=== PATIENT | female | born 1960 | race Caucasian/White ===

== ENCOUNTER → 2016-10-15 | Outpatient (CLI) | payer BC ==
[~2016-10-15] MED LIST: ASPERCREME1 EACH TP; PERCOCET 7.51 TABLET PO; TORADOL10 MG PO; ZOFRAN ODT4 MG PO
== END | disposition home or self-care (01) ==
LOC: CDC 08:14
DX: R94.31 Abnormal electrocardiogram [ECG] [EKG] (principal)
CPT/HCPCS: 93000

== ENCOUNTER 2016-10-24 16:11 | Emergency (ER) | payer BC ==
[~2016-10-24] VITALS: Ht 160 cm; Wt 84.7 kg
[2016-10-24] MEDS ORDERED: CELECOXIB200 MG PO (16:47)
[2016-10-24] MEDS ORDERED: METOPROLOL SUCC25 MG PO (16:47)
[2016-10-24] MEDS ORDERED: SYNTHROID200 MCG PO (16:47)
[2016-10-24] MEDS ORDERED: DESLORATADINE5 MG PO (16:48)
[2016-10-24] MEDS ORDERED: PREDNISONE10 MG PO (16:53)
[2016-10-24] MEDS ORDERED: PEPCID20 MG PO (16:53)
[2016-10-24] MEDS ORDERED: BENADRYL50 MG PO (16:53)
[2016-10-24 17:07] VITALS: BP 136/92
== END 2016-10-24 17:08 | disposition home or self-care (01) ==
LOC: EME 16:11
DX: T65.891A Toxic effect of other specified substances, accidental (unintentional), initial encounter (principal); L23.1 Allergic contact dermatitis due to adhesives; I10 Essential (primary) hypertension; K21.9 Gastro-esophageal reflux disease without esophagitis; E03.9 Hypothyroidism, unspecified; Z96.612 Presence of left artificial shoulder joint; Z98.1 Arthrodesis status
CPT/HCPCS: 99281; 99283; J7512